=== PATIENT | male | born 1975 | race Caucasian/White ===

== ENCOUNTER 2021-01-08 15:40 | Emergency (ER) | payer OTHER, SELFPAY ==
--- NOTE | 2021-01-08 15:35 | ECG_ITS ---
APPROVED REPORT Exam: Resting ECG HR:114 bpm ECG Measurements Heart Rate 114 AXES [place] 170 P 62 QRSd 94 QRS 28 QT 336 T 55 QTc 463 Conclusion Sinus tachycardia Possible Left atrial enlargement Borderline ECG Electronically signed by : Dev Castillo, 01/09/2021 17:50:25
[2021-01-08 15:41] VITALS: BP 158/99; PULSE 116; RESP 24; TEMP 36.8; O2SAT 96
[2021-01-08 15:42] VITALS: BP 158/99; PULSE 110; RESP 18; TEMP 36.7; O2SAT 98; BMI 35.2
[2021-01-08 15:44] VITALS: BMI 35.2
--- NOTE | 2021-01-08 15:46 | XR_ITS ---
PROCEDURE: XR CHEST PORTABLE CLINICAL HISTORY: near syncope, chest pain COMPARISON: No exams were available for comparison FINDINGS: The cardiomediastinal silhouette and pulmonary vascularity are within normal limits. Small calcified granuloma left mid lung. Mild bibasilar scar versus atelectasis. No definite focal infiltrate. No pleural effusion or pneumothorax. No acute bony abnormalities. IMPRESSION: No acute cardiopulmonary disease. Dictated by: Saul Otero MD 01/08/2021 16:08 Saul Otero MD in [place] 01/08/2021 16:08
[2021-01-08 16:04] LABS: Basophils # 0.1 K/mm3 (0-0.2); Basophils % 0.6 % (0.1-2.0); Eosinophils # 0.2 K/mm3 (0.0-0.4); Eosinophils % 1.9 % (0.1-12.0); Hematocrit 45.2 % (42.0-52.0); Hemoglobin 15.6 g/dL (14.1-18.0); Lymphocytes # 2.1 K/mm3 (0.7-4.5); Lymphocytes % 19.2 % (10-50); Mean Corpuscular HGB Conc 34.5 g/dL (31.8-35.4); Mean Corpuscular Hemoglobin 29.4 pg (27.0-31.2); Mean Corpuscular Volume 85.4 fl (80-94); Mean Platelet Volume 7.9 fl (7.4-10.4); Monocytes # 0.6 K/mm3 (0.1-1.0); Monocytes % 5.3 % (1.7-9.3); Neutrophils # 7.9 K/mm3 (1.8-7.8); Platelet Count 345 K/mm3 (142-424); Red Blood Count 5.29 M/mm3 (4.60-6.20); Red Cell Distribution Width 13.9 % (11.5-17.5); White Blood Count 10.8 K/mm3 (4.8-10.8)
[2021-01-08 16:11] LABS: Chloride 106 mmol/L (98-107)
--- NOTE | 2021-01-08 16:11 | [facility].EDDIZZ ---
ED Disposition Clinical Impression: Syncope, near Disposition: Home, Self-Care Condition on Discharge: Good Instructions: DI for Syncope in Adults (Fainting) Referrals: Kin Oquendo [Primary Care Provider] - - Critical Care Critical Care Time: No Attestation: On 01/08/21, the high probability of a clinically significant, sudden or life threatening deterioration of the following system(s) required my full and direct attention, intervention and personal management. The time I documented below is in addition to time spent performing reported procedures but includes the following listed in this critical care notation. Medical Decision Making - Medical Records Medical records reviewed: Yes: I reviewed the patient's medical records. - Kishore Inquiry Pt receiving controlled substance: No Vital Signs: 01/08/21 15:42 Temperature 98.0 F Temperature Source Oral Pulse Rate [Right Radial] 110 H Respiratory Rate 18 Blood Pressure [Right Arm] 158/99 H Blood Pressure Mean [Right Arm] 118 Blood Pressure Source [Right Arm] Automatic Cuff Blood Pressure Position [Right Arm] Sitting 02 Sat by Pulse Oximetry 98 Oxygen Delivery Method Room Air - Lab Data Lab results reviewed: Yes: I reviewed the patient's lab results. Lab Results 01/08/21 15:56: WBC 10.8, RBC 5.29, Hgb 15.6, Hct 45.2, MCV 85.4, MCH 29.4, MCHC 34.5, RDW 13.9, Plt Count 345, MPV 7.9, Neut % (Auto) 73.0, Lymph % (Auto) 19.2, [place] % (Auto) 5.3, Eos % (Auto) 1.9, Baso % (Auto) 0.6, Neut # (Auto) 7.9 H, Lymph # (Auto) 2.1, [place] # (Auto) 0.6, Eos # (Auto) 0.2, Baso # (Auto) 0.1 01/08/21 15:56: Sodium 141, Potassium 3.8, Chloride 106, Carbon Dioxide 25, Anion Gap 13.8, BUN 19, Creatinine 0.90, Estimated Creat Clear 199, Estimated GFR 90, Est GFR ( Amer) 109, Glucose 94, Calcium 9.7, Troponin I < 0.01 01/08/21 16:17: D-Dimer 0.43 Result diagrams: 01/08/21 15:56 01/08/21 15:56 Orders (Tests/Meds): ED MEDICATIONS Discontinued Medications Generic Name Dose Route Start Last Admin Trade Name Kemi PRN Reason Stop Dose Admin Sodium Chloride 500 mls @ 999 mls/hr 01/08/21 16:15 01/08/21 16:24 Sod Chlor 0.9% 1000ml Bag IV 01/08/21 16:45 999 mls/hr .Q31M JEREMY Administration ORDERS Category Date Time Status Troponin I Q3H Lab 01/08/21 19:00 Ordered Troponin I Q3H Lab 01/08/21 22:00 Ordered Medical Decision Narrative: Patient tachycardic on arrival. Appears well and is asymptomatic at present. Differential for near syncope includes vasovagal versus dehydration secondary to diarrhea versus anemia D-dimer negative. Blood counts normal. Kidney and liver function normal. Blood pressure remained normal during the ED stay. Heart rate improved to the low 100s. Patient reports that he has had ongoing dizziness spells for months now. Patient is advised that his dizziness spells may be secondary to his diarrhea and dehydration. However, he will need a further work-up by his primary care provider. Return indications reviewed. Dizzy HPI - General Chief Complaint: Syncope Stated Complaint: near syncope Time Seen by Provider: 01/08/21 16:11 Mode of Arrival: Ambulatory Limitations: No Limitations Description of Symptoms (Recalled from ER Triage Doc. by RN): Pt reports approx 2 hours ago while walking into a store he got suddenly dizzy, pt reports he then began having pain shooting all over his body including in his chest. Pt denies presence of pain at time of presentation to ED. - History of Present Illness HPI Narrative: She is a healthy 45-year-old male who presents emergency department with near syncope. He was shopping at [employer] when he felt all of a sudden lightheaded, nauseous and like he was going to pass out. This happened a couple more times and so he decided come to the emergency department to be evaluated. He reports right now his symptoms are improved. He has IBS and is currently have been having diarrhea which he fall
[2021-01-08 16:12] LABS: Potassium 3.8 mmoL/L (3.5-5.1); Sodium 141 mmol/L (136-145)
[2021-01-08 16:14] LABS: Blood Urea Nitrogen 19 mg/dl (9-20); Creatinine Clearance Estimated 199 mL/min (50-200)
[2021-01-08 16:15] LABS: Anion Gap 13.8 mEq/L (5-15); Calcium 9.7 mg/dl (8.4-10.2); Carbon Dioxide 25 mmol/L (22.0-30.0); Estimated Glomerular Filt Rate 90 ml/min (>60); GFR (African American) 109 ML/MIN (>60); Glucose 94 mg/dl (74-100)
[2021-01-08 16:29] LABS: Troponin I < 0.01 ng/ml (0.00-0.034)
[2021-01-08 16:30] VITALS: BP 149/94; PULSE 110; RESP 19; TEMP 36.8
[2021-01-08 16:41] LABS: D-Dimer 0.43 ug/mL (0.0-0.5)
[2021-01-08 17:07] VITALS: BP 151/93; PULSE 68; RESP 16; TEMP 36.6; O2SAT 98
== END 2021-01-08 17:09 | disposition home or self-care (01) ==
PROVIDERS: Emergency Provider Emergency Medicine; PCP Family Medicine
DX: R55 Syncope and collapse (principal)
CPT/HCPCS: 71045; 80048; 84484; 85025; 85378; 93005; 96365; 99282

== ENCOUNTER → 2022-02-03 15:21 | Outpatient (CLI) | payer OTHER, SELFPAY | PROVIDERS: PCP Family Medicine; Visit Provider Family Medicine | DX: G47.30 Sleep apnea, unspecified (principal); R06.83 Snoring | CPT/HCPCS: 95806 ==